=== PATIENT | female | born 1990 | race Caucasian/White ===

== ENCOUNTER 2023-01-19 00:47 | Inpatient (IN) | payer MEDICAID ==
[~2023-01-19] VITALS: Ht 165.1 cm; Wt 65.9 kg
[2023-01-19 02:06] LABS: HEMATOCRIT 31.4 % (31.2-41.9); MEAN CORPUSCULAR HEMOGLOBIN 28.7 uug (24.7-32.8); MEAN CORPUSCULAR VOLUME 84.1 fL (75.5-95.3); PLATELET COUNT (AUTO) 431 K/uL (179-408)
[2023-01-19 02:16] LABS: CREATININE 0.7 mg/dL (0.6-1.3); POTASSIUM 3.8 mmol/L (3.5-5.1)
[2023-01-19] MEDS ORDERED: PIPERACILLIN SODIUM/TAZOBACTAM 3.375 G in IV DEXTROSE 5% 50 ML IV ONE (02:30)
[2023-01-19] MEDS ORDERED: VANCOMYCIN IV 1,000 MG in IV DEXTROSE 5% 250 ML IV ONE (02:30)
[2023-01-19] MEDS ORDERED: IV NORMAL SALINE 1000 ML BAG IV ONE (02:30)
[2023-01-19] MEDS ORDERED: PIPERACILLIN/TAZOBACTAM/D5W 50 ML IV ONE ×3 (03:05→18:00)
[2023-01-19] MEDS ORDERED: VANCOMYCIN IV 0 ML ONE (03:05)
[2023-01-19] MEDS ORDERED: ONDANSETRON 4 MG/2 ML VIAL IV PRN (06:30)
[2023-01-19] MEDS ORDERED: REMEDY ESSENTIAL ZINC PASTE 113 GM TP PRN (06:30)
[2023-01-19] MEDS ORDERED: MAGNESIUM HYDROXIDE 30 ML LIQUID UDC PO PRN (06:30)
[2023-01-19] MEDS ORDERED: ACETAMINOPHEN 325 MG TABLET PO PRN (06:30)
[2023-01-19] MEDS ORDERED: PANTOPRAZOLE SODIUM 40 MG TABLET.DR PO ONE (07:15)
[2023-01-19] MEDS: PANTOPRAZOLE SODIUM 40 MG TABLET.DR PO SCH (07:25)
[2023-01-19] MEDS: PIPERACILLIN SODIUM/TAZOBACTAM 3.375 G in IV DEXTROSE 5% 50 ML IV SCH ×2 (12:42→18:04)
[2023-01-19] MEDS ORDERED: PIPERACILLIN SODIUM/TAZOBACTAM 3.375 G in IV DEXTROSE 5% 50 ML IV SCH (14:00)
[2023-01-19] MEDS: VANCOMYCIN IV 1,000 MG in IV DEXTROSE 5% 250 ML IV SCH (15:12)
[2023-01-19 22:32] VITALS: BP 106/72
[2023-01-19] MEDS: MORPHINE SULFATE 2 MG/1 ML DISP.SYRIN IV PRN (22:42)
[2023-01-19] MEDS ORDERED: VANCOMYCIN IV 200 ML ONE (23:46)
[2023-01-19] MEDS ORDERED: PIPERACILLIN SODIUM/TAZO 3.375 GM VIAL ONE (23:48)
[2023-01-20] MEDS: PIPERACILLIN SODIUM/TAZOBACTAM 3.375 G in IV DEXTROSE 5% 50 ML IV SCH ×5 (00:13→23:17)
[2023-01-20] MEDS: VANCOMYCIN IV 1,000 MG in IV DEXTROSE 5% 250 ML IV SCH (03:04)
[2023-01-20 03:56] VITALS: BP 104/61
[2023-01-20] MEDS: PANTOPRAZOLE SODIUM 40 MG TABLET.DR PO SCH (06:04)
[2023-01-20 06:43] LABS: MEAN CORPUSCULAR HEMOGLOBIN 28.7 uug (24.7-32.8); MEAN CORPUSCULAR VOLUME 85.4 fL (75.5-95.3); PLATELET COUNT (AUTO) 405 K/uL (179-408)
[2023-01-20 07:20] LABS: CREATININE 0.7 mg/dL (0.6-1.3); MAGNESIUM 1.9 mg/dL (1.8-2.4); PHOSPHOROUS 3.9 mg/dL (2.5-4.9); POTASSIUM 3.9 mmol/L (3.5-5.1)
[2023-01-20] MEDS: MORPHINE SULFATE 2 MG/1 ML DISP.SYRIN IV PRN ×2 (10:29→15:13)
[2023-01-20 11:53] VITALS: BP 118/67
[2023-01-20 16:06] VITALS: BP 131/71
[2023-01-20] MEDS: VANCOMYCIN IV 750 MG in IV DEXTROSE 5% 250 ML IV SCH (18:02)
[2023-01-20 19:46] VITALS: BP 114/66
[2023-01-21] MEDS: VANCOMYCIN IV 750 MG in IV DEXTROSE 5% 250 ML IV SCH ×3 (00:03→18:00)
[2023-01-21 04:27] VITALS: BP 114/57
[2023-01-21] MEDS: PIPERACILLIN SODIUM/TAZOBACTAM 3.375 G in IV DEXTROSE 5% 50 ML IV SCH ×3 (05:12→20:42)
[2023-01-21] MEDS: PANTOPRAZOLE SODIUM 40 MG TABLET.DR PO SCH (06:04)
[2023-01-21 07:01] LABS: HEMATOCRIT 29.8 % (31.2-41.9); MEAN CORPUSCULAR HEMOGLOBIN 28.1 uug (24.7-32.8); MEAN CORPUSCULAR VOLUME 84.6 fL (75.5-95.3); PLATELET COUNT (AUTO) 439 K/uL (179-408)
[2023-01-21 07:22] LABS: CREATININE 0.7 mg/dL (0.6-1.3); PHOSPHOROUS 4.2 mg/dL (2.5-4.9); POTASSIUM 3.5 mmol/L (3.5-5.1)
[2023-01-21 11:33] VITALS: BP 105/64
[2023-01-21 15:17] VITALS: BP 123/88
[2023-01-21 20:00] VITALS: BP 135/72
[2023-01-22] MEDS: PIPERACILLIN SODIUM/TAZOBACTAM 3.375 G in IV DEXTROSE 5% 50 ML IV SCH ×4 (01:07→20:20)
[2023-01-22 05:05] VITALS: BP 108/53
[2023-01-22] MEDS: PANTOPRAZOLE SODIUM 40 MG TABLET.DR PO SCH (06:03)
[2023-01-22 06:30] LABS: HEMATOCRIT 30.3 % (31.2-41.9); MEAN CORPUSCULAR HEMOGLOBIN 28.5 uug (24.7-32.8); MEAN CORPUSCULAR VOLUME 83.7 fL (75.5-95.3); PLATELET COUNT (AUTO) 433 K/uL (179-408)
[2023-01-22 06:45] LABS: CREATININE 0.7 mg/dL (0.6-1.3); POTASSIUM 3.9 mmol/L (3.5-5.1)
[2023-01-22 08:12] VITALS: BP 106/53
[2023-01-22] MEDS: VANCOMYCIN IV 1,000 MG in IV DEXTROSE 5% 250 ML IV SCH ×4 (09:31→18:09)
[2023-01-22 11:05] VITALS: BP 105/55
[2023-01-22 15:11] VITALS: BP 117/60
[2023-01-22 20:15] VITALS: BP 120/67
[2023-01-23] MEDS: PIPERACILLIN SODIUM/TAZOBACTAM 3.375 G in IV DEXTROSE 5% 50 ML IV SCH ×5 (01:20→20:41)
[2023-01-23] MEDS: VANCOMYCIN IV 1,000 MG in IV DEXTROSE 5% 250 ML IV SCH ×3 (03:24→20:41)
[2023-01-23 06:00] VITALS: BP 104/58
[2023-01-23] MEDS: PANTOPRAZOLE SODIUM 40 MG TABLET.DR PO SCH (06:09)
[2023-01-23 06:35] LABS: HEMATOCRIT 33.1 % (31.2-41.9); MEAN CORPUSCULAR HEMOGLOBIN 28.1 uug (24.7-32.8); MEAN CORPUSCULAR VOLUME 83.8 fL (75.5-95.3); PLATELET COUNT (AUTO) 486 K/uL (179-408)
[2023-01-23 06:45] LABS: CREATININE 0.7 mg/dL (0.6-1.3); POTASSIUM 4.2 mmol/L (3.5-5.1)
[2023-01-23 12:00] VITALS: BP 103/52
[2023-01-23 14:58] VITALS: BP 128/74
[2023-01-23 20:00] VITALS: BP 138/72
== END 2023-01-23 23:15 | disposition left against medical advice (07) | DRG 720 ==
LOC: ER 00:52 → TRANSITION 09:44 → MED 21:05 → MEDSURG3 01-23 17:51
PROVIDERS: ADMIT Nurse Practitioner Family; ATTEND Student in an Organized Health Care Education/Training Program
PROC: 0H9U3ZX Drainage of Left Breast, Percutaneous Approach, Diagnostic (ICD-10-PCS; principal; 2023-01-20)
PROC: 05HA33Z Insertion of Infusion Device into Left Brachial Vein, Percutaneous Approach (ICD-10-PCS; 2023-01-22)
DX: A41.9 Sepsis, unspecified organism (principal); D63.8 Anemia in other chronic diseases classified elsewhere; D75.839 Thrombocytosis, unspecified; N61.1 Abscess of the breast and nipple; F17.210 Nicotine dependence, cigarettes, uncomplicated; F16.10 Hallucinogen abuse, uncomplicated; F12.10 Cannabis abuse, uncomplicated; F19.90 Other psychoactive substance use, unspecified, uncomplicated
CPT/HCPCS: 36415; 76642; 83605; 83735; 84100; 85025; 85610; 87040; G0378; J2270; J2543; J3370; J7040; J7050

== ENCOUNTER 2023-02-09 13:29 | Emergency (ER) | payer MEDICAID ==
[~2023-02-09] VITALS: Ht 165.1 cm; Wt 61.2 kg
--- NOTE | 2023-02-09 13:50 | NUR ---
PT IS IN ROOM #3. DR SWEENEY EVALUATED THE PT.
[2023-02-09] MEDS ORDERED: MUPI15CR TP (14:00)
[2023-02-09] MEDS ORDERED: CEPH500T PO (14:00)
[2023-02-09] MEDS ORDERED: SULF1TAB48 PO (14:00)
--- NOTE | 2023-02-09 14:22 | NUR ---
PT WAS D/C'd TO HOME. D/C INSTRUCTIONS GIVEN TO THE PT BY DR SWEENEY.
[2023-02-09 14:27] VITALS: BP 129/77
== END 2023-02-09 14:28 | disposition home or self-care (01) ==
LOC: ER 13:29
DX: L73.9 Follicular disorder, unspecified (principal); B95.62 Methicillin resistant Staphylococcus aureus infection as the cause of diseases classified elsewhere; F17.210 Nicotine dependence, cigarettes, uncomplicated; Z79.899 Other long term (current) drug therapy
CPT/HCPCS: A4663